=== PATIENT | female | born 1995 | race Caucasian/White ===

== ENCOUNTER 2021-06-28 13:31 | Emergency (ER) | payer SELFPAY ==
[~2021-06-28] VITALS: Ht 180.3 cm; Wt 75.7 kg
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
--- NOTE | 2021-06-28 14:20 | NUR ---
AT BEDSIDE FOR EVAL.
[2021-06-28] MEDS ORDERED: ONDANSETRON 4 MG TAB.RAPDIS SL ONE (14:30)
[2021-06-28] MEDS ORDERED: HYDROCODONE/APAP 5/325MG TABLET PO ONE (14:30)
[2021-06-28] MEDS ORDERED: HYDROCODONE/APAP 5/325MG TABLET ONE (14:36)
[2021-06-28] MEDS ORDERED: ONDANSETRON 4 MG TAB.RAPDIS ONE (14:36)
--- NOTE | 2021-06-28 14:40 | NUR ---
PT SIGNED WAIVER.
[2021-06-28] MEDS ORDERED: HYDR-4303 PO (15:57)
--- NOTE | 2021-06-28 16:21 | NUR ---
Patient discharged to home in stable condition. Written and verbal after care instructions given. Patient verbalizes understanding of instruction.
[2021-06-28 16:22] VITALS: BP 119/84
== END 2021-06-28 16:22 | disposition home or self-care (01) ==
LOC: ER 13:35
DX: S02.31XA Fracture of orbital floor, right side, initial encounter for closed fracture (principal); S20.212A Contusion of left front wall of thorax, initial encounter; S60.222A Contusion of left hand, initial encounter; Y08.89XA Assault by other specified means, initial encounter; Y93.89 Activity, other specified; Y92.89 Other specified places as the place of occurrence of the external cause; Y99.8 Other external cause status
CPT/HCPCS: 70450; 70480; 71100; 73130; 99284; Q0162